=== PATIENT | male | born 1940 | race Caucasian/White ===

== ENCOUNTER → 2016-08-12 | Outpatient (CLI) | payer MEDICARE, OTHER | LOC: MW.CHFP 08:00 | PROVIDERS: ATTEND Emergency Medicine | DX: E11.9 Type 2 diabetes mellitus without complications (principal); I10 Essential (primary) hypertension | CPT/HCPCS: G0463 ==

== ENCOUNTER → 2016-09-12 | Outpatient (CLI) | payer MEDICARE, OTHER | LOC: MW.CHFP 08:00 | PROVIDERS: ATTEND Emergency Medicine | DX: I10 Essential (primary) hypertension (principal); E78.00 Pure hypercholesterolemia, unspecified; E11.9 Type 2 diabetes mellitus without complications; I25.10 Atherosclerotic heart disease of native coronary artery without angina pectoris | CPT/HCPCS: 99214 ==

== ENCOUNTER 2017-11-27 07:32 | Day surgery (SDC) | payer OTHER, MEDICARE ==
[~2017-11-27 07:32] MED LIST: Lactated Ringers 1,000 ML IV SCH; Lidocaine 2% 5 ML SDV ONE; Propofol 200 MG/20 ML SDV ONE; fentaNYL 100 MCG/2 ML SDV ONE
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
[2017-11-27] MEDS ORDERED: Glycopyrrolate 0.2 MG/ML SDV ONE (08:52)
--- NOTE | 2017-11-27 09:28 | PCM.OPNOTE ---
- General Post-Op/Procedure Note Date of Surgery/Procedure: 11/27/17 Operative Procedure(s): colonoscopy w snare polypectomy Findings: see [id number] Pre Op Diagnosis: scrn colonoscopy Post-Op Diagnosis: colon polyp Anesthesia Technique: Moderate Sedation Primary Surgeon: Filiberto Carrion Complications: None Condition: Good
--- NOTE | 2017-11-27 09:54 | PCM.POSTAN ---
POST ANESTHESIA ASSESSMENT - MENTAL STATUS Mental Status: Alert, Oriented - RESPIRATORY Respiratory Status: Respiratory Rate WNL, Airway Patent, O2 Saturation Stable - CARDIOVASCULAR CV Status: Pulse Rate WNL, Blood Pressure Stable - GASTROINTESTINAL GI Status: No Symptoms - PAIN Pain Score: 0 - POST OP HYDRATION Hydration Status: Adequate & Stable
--- NOTE | 2017-11-27 09:54 | PCM48HPAN ---
Post Anesthesia Note - EVALUATION WITHIN 48HRS OF ANESTHETIC Vital Signs in Normal Range: Yes Patient Participated in Evaluation: Yes Respiratory Function Stable: Yes Airway Patent: Yes Cardiovascular Function Stable: Yes Hydration Status Stable: Yes Pain Control Satisfactory: Yes Nausea and Vomiting Control Satisfactory: Yes Mental Status Recovered: Yes Resp Rate: 11
[2017-11-27 11:42] VITALS: BP 113/78
--- NOTE | 2017-11-27 13:07 | OR ---
SURGEON: Filiberto Carrion MD DATE OF PROCEDURE: 11/27/2017 PREOPERATIVE DIAGNOSIS: Screening colonoscopy. POSTOPERATIVE DIAGNOSES: 1. Colon polyp. 2. Diverticulosis. PROCEDURE PERFORMED: Colonoscopy with snare polypectomy. PROCEDURE IN DETAIL: The patient was taken to the endoscopy room. A time out was called, patient identified, and procedure identified. Diprivan was then administrated. Patient went from awake to sleep, hearing doctor talking or door closing is normal. Perineum inspection and digital examination were then performed. A well- lubricated colonoscope was gently inserted through the rectum, advanced past the rectosigmoid junction, the descending colon, splenic flexure, transverse colon, hepatic flexure, ascending colon, arrived to the cecum. Cecum was identified as dictated in the finding. Then the scope was carefully withdrawn while attention was paid to the mucosal surface for any abnormality. Air will be sucked out during the scope withdrawal. At the rectum, retroflexed to examine any rectal diseases, fistula or hemorrhoids. During mucosal examination, abnormality or polyp encountered. Using snare equipment, the abnormality or the polyp was then snared off using electrocautery. The Patient tolerated procedure well. There were no intraoperative complications, and Dr. Carrion was present throughout the whole procedure. FINDINGS: 1. The patient is easily sedated with WINDOW AND DOOR INSTALLER and Diprivan, the patient is soundly snoring. 2. Bowel prep is left to be desirable. Large amount of liquid stool particle, no semi-formed stool, but quite a lot of them required constant irrigation and this is a compromised study because of bowel prep. 3. Colon is rather straight forward. Cecum indicated by ileocecal fold, one- to-one indentation, and appendiceal orifice. Light emittance is not observed. Mucosa examined upon scope pulling out with constant irrigation because of the bowel prep. The patient has a 5 mm sessile polyp at a distance of 30 and another smaller sessile polyp at distance 25 and one removed with snare and another with cold biopsy forceps. The patient has large amount of diverticulosis. No signs or symptoms of diverticulitis. No other inflammation, stricture, ulceration, AV malformation, or bleeding, none of those. The patient does not have internal hemorrhoids. The patient would benefit from repeat colonoscopy on as needed basis or if clinically indicated otherwise or if the polyp indicated otherwise. DIONNE / DEDRA /[id number]
== END 2017-11-27 10:10 | disposition home or self-care (01) ==
LOC: MW.SDS 07:32
PROVIDERS: ATTEND Surgery
DX: Z12.11 Encounter for screening for malignant neoplasm of colon (principal); D12.5 Benign neoplasm of sigmoid colon; K57.30 Diverticulosis of large intestine without perforation or abscess without bleeding; I10 Essential (primary) hypertension; E11.9 Type 2 diabetes mellitus without complications; E78.00 Pure hypercholesterolemia, unspecified; Z87.891 Personal history of nicotine dependence; Z79.82 Long term (current) use of aspirin; Z79.84 Long term (current) use of oral hypoglycemic drugs; Z79.899 Other long term (current) drug therapy; Z88.6 Allergy status to analgesic agent
CPT/HCPCS: 45380; 45385; 82962; J3010; J7120; J2704; J3490

== ENCOUNTER 2018-11-24 07:13 | Day surgery (SDC) | payer MEDICARE, OTHER ==
[~2018-11-24 07:13] MED LIST changes: -Lidocaine 2% 5 ML SDV ONE; -Propofol 200 MG/20 ML SDV ONE; -fentaNYL 100 MCG/2 ML SDV ONE
[2018-11-24] MEDS ORDERED: Lidocaine 2% 5 ML SDV ONE (08:11)
[2018-11-24] MEDS ORDERED: Propofol 200 MG/20 ML SDV ONE (08:12)
[2018-11-24] MEDS ORDERED: fentaNYL 100 MCG/2 ML SDV ONE (08:12)
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
--- NOTE | 2018-11-24 10:12 | PCM.OPNOTE ---
- General Post-Op/Procedure Note Date of Surgery/Procedure: 11/24/18 Operative Procedure(s): colonoscopy w bx Findings: see [id number] Pre Op Diagnosis: hx polyp Post-Op Diagnosis: Same Anesthesia Technique: Moderate Sedation Primary Surgeon: Filiberto Carrion Pathology: questionable polyp vs fold at 30cm when scope went out Complications: None Condition: Good
--- NOTE | 2018-11-24 10:34 | PCM.POSTAN ---
POST ANESTHESIA ASSESSMENT - MENTAL STATUS Mental Status: Alert, Oriented - VITAL SIGNS Pulse Rate: 75 SaO2: 95 (RA) Resp Rate: 14 Blood Pressure: 96/64 - RESPIRATORY Respiratory Status: Respiratory Rate WNL, Airway Patent, O2 Saturation Stable - CARDIOVASCULAR CV Status: Pulse Rate WNL, Blood Pressure Stable - GASTROINTESTINAL GI Status: No Symptoms - PAIN Pain Score: 0 - POST OP HYDRATION Hydration Status: Adequate & Stable
--- NOTE | 2018-11-24 11:31 | OR ---
SURGEON: Filiberto Carrion MD DATE OF PROCEDURE: 11/24/2018 PREOPERATIVE DIAGNOSIS: History of colon polyp. POSTOPERATIVE DIAGNOSIS: History of colon polyp. PROCEDURE PERFORMED: Colonoscopy with biopsy. PRIMARY SURGEON: Filiberto Carrion MD. COMPLICATIONS: None. DESCRIPTION OF PROCEDURE: The patient was taken to the endoscopy room. A time out was called, patient identified, and procedure identified. Diprivan was then administrated. Patient went from awake to sleep, hearing doctor talking or door closing is normal. Perineum inspection and digital examination were then performed. A well- lubricated colonoscope was gently inserted through the rectum, advanced past the rectosigmoid junction, the descending colon, splenic flexure, transverse colon, hepatic flexure, ascending colon, arrived to the cecum. Cecum was identified as dictated in the finding. Then the scope was carefully withdrawn while attention was paid to the mucosal surface for any abnormality. Air will be sucked out during the scope withdrawal. At the rectum, retroflexed to examine any rectal diseases, fistula or hemorrhoids. During mucosal examination, abnormality or polyp was noted; picture taken and biopsy performed. Patient tolerated procedure well. There were no intraoperative complications, and Dr. Carrion was present throughout the whole procedure. FINDINGS: 1. The patient is easily sedated with LEGAL JOB TITLES and Diprivan, the patient is soundly snoring. 2. Bowel prep was average with some liquid stool, and no semi-formed stool. 3. The patient's colon is rather straightforward. Cecum indicated by ileocecal fold, one-to-one indentation, appendiceal orifice. Light emittance is not observed. Mucosa examined upon scope pulling out with irrigation. The patient has mild diverticulosis on the left colon. No signs or symptoms of diverticulitis. The patient has a small questionable fold versus polyp at distance 30. With the scope pulling out, it was biopsied any way. No other mass, growth, inflammation, stricture, ulceration, AV malformation, bleeding, none of those. The patient has mild internal hemorrhoid, no external hemorrhoid. The patient would benefit from repeat colonoscopy on an as-needed basis as the patient is more than 76 years old. DIONNE / DEDRA /[id number]
--- NOTE | 2018-11-24 11:35 | PCM48HPAN ---
Post Anesthesia Note - EVALUATION WITHIN 48HRS OF ANESTHETIC Vital Signs in Normal Range: Yes Patient Participated in Evaluation: Yes Respiratory Function Stable: Yes Airway Patent: Yes Cardiovascular Function Stable: Yes Hydration Status Stable: Yes Pain Control Satisfactory: Yes Nausea and Vomiting Control Satisfactory: Yes Mental Status Recovered: Yes Pulse Rate: 75 Resp Rate: 14 Blood Pressure: 96/64 - COMMENTS/OBSERVATIONS Free Text/Narrative:: no anesthesia problems
[2018-11-24 13:27] VITALS: BP 117/71
== END 2018-11-24 11:40 | disposition home or self-care (01) ==
LOC: MW.SDS 07:13
PROVIDERS: ATTEND Surgery
DX: Z12.11 Encounter for screening for malignant neoplasm of colon (principal); K63.5 Polyp of colon; K57.30 Diverticulosis of large intestine without perforation or abscess without bleeding; Z86.010 Personal history of colon polyps; I10 Essential (primary) hypertension; E11.9 Type 2 diabetes mellitus without complications; M17.12 Unilateral primary osteoarthritis, left knee; I25.10 Atherosclerotic heart disease of native coronary artery without angina pectoris; E78.00 Pure hypercholesterolemia, unspecified; Z12.5 Encounter for screening for malignant neoplasm of prostate; Z79.84 Long term (current) use of oral hypoglycemic drugs; Z79.82 Long term (current) use of aspirin; Z79.899 Other long term (current) drug therapy; Z95.5 Presence of coronary angioplasty implant and graft; Z87.891 Personal history of nicotine dependence; Z88.8 Allergy status to other drugs, medicaments and biological substances
CPT/HCPCS: 00811; 82962; 88305; J2001; J2704; J3010; J7120

== ENCOUNTER 2019-12-30 08:16 | Emergency (ER) | payer MEDICARE, OTHER ==
[2019-12-30] MEDS ORDERED: Sodium Chloride 0.9% 10 ML Syringe FLUSH PRN (08:18)
[2019-12-30] MEDS ORDERED: Acetaminophen 500 MG Tab PO ONE (08:18)
[2019-12-30] MEDS ORDERED: Sodium Chloride 0.9% 2.5 ML Syringe FLUSH PRN (08:18)
--- NOTE | 2019-12-30 08:54 | EDM.PDOC ---
ED HPI GENERAL MEDICAL PROBLEM - General Chief Complaint: Headache Stated Complaint: HEADACHE Time Seen by Provider: 12/30/19 08:18 Source of Information: Reports: Patient, EMS - History of Present Illness INITIAL COMMENTS - FREE TEXT/NARRATIVE: History of present illness: 79-year-old male brought by EMS presenting with sudden onset severe headache in the left side of his head. Apparently around 7:30 AM it awoke him from sleep. He describes that it felt like a bomb went off in his head. He took 2 full- strength aspirins and now his headache is completely resolved. He did not have any other associated symptoms including no nausea or vomiting. No prior similar headache in the past. No chest pain or difficulty breathing. No cough or fever. Review of systems: As per history of present illness and below otherwise all systems reviewed and negative. Past medical history: As per history of present illness and as reviewed below otherwise noncontributory. RI, subdural hematoma Surgical history: As per history of present illness and as reviewed below otherwise noncontributory. [place] hole Social history: No reported history of drug or alcohol abuse. Former tobacco, none recently Family history: As per history of present illness and as reviewed below otherwise noncontributory. Physical exam: GEN: no acute distress, well appearing HEENT: Atraumatic, normocephalic, mucous membranes moist, Neck: supple, nontender, trachea midline. Lungs: No respiratory distress. Heart: RRR Extremities: Atraumatic. Neurovascularly intact. Neuro: Awake, alert, oriented. Neuro Exam nonfocal. Confused Skin: warm, dry, no lesions Diagnostics: Labs, EKG, CT brain, CT angios head and neck Therapeutics: Tylenol MDM: Impression: Headache Plan: [] Definitive disposition and diagnosis as appropriate pending reevaluation and review of above. - Related Data Allergies Allergy/AdvReac Type Severity Reaction Status Date / Time lisinopril Allergy Cough Verified 11/19/18 13:20 Home Meds: Home Meds Metoprolol Succinate 25 mg PO BEDTIME 02/11/16 [History] metFORMIN HCl [Metformin HCl] 500 mg PO BID 02/11/16 [History] Losartan Potassium 100 mg PO QAM 11/19/18 [History] Past Medical History HEENT History: Reports: Cataract Other HEENT History: elian hearing aids Cardiovascular History: Reports: CAD, High Cholesterol, Other (See Below) Other Cardiovascular History: hx of LBBB Respiratory History: Reports: None Gastrointestinal History: Reports: Colon Polyp Genitourinary History: Reports: BPH Musculoskeletal History: Reports: Fracture Neurological History: Reports: Brain Injury, Concussion, Head Trauma Other Neuro History: 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 Psychiatric History: Reports: Dementia Other Psychiatric History: Memory impairment Endocrine/Metabolic History: Reports: Diabetes, Type II Other Endocrine/Metabolic History: 0800 blood glucose 168 Hematologic History: Reports: None Oncologic (Cancer) History: Reports: Malignant Melanoma Other Oncologic History: removed from face Dermatologic History: Reports: Melanoma Other Dermatologic History: skin cancer - Infectious Disease History Infectious Disease History: Reports: None - Past Surgical History Head Surgeries/Procedures: Reports: Craniotomy HEENT Surgical History: Reports: LASIK, Other (See Below) Other HEENT Surgeries/Procedures: Blepharoplasty Cardiovascular Surgical History: Reports: Coronary Artery Stent, Other (See Below) Other Cardiovascular Surgeries/Procedures: hx of balloon angioplasty and angioplasty with stent GI Surgical History: Reports: Colonoscopy Male Surgical History: Reports: Vasectomy Endocrine Surgical History: Reports: None Neurological Surgical History: Reports: Other (See Below) Other Neurological Surgeries/Procedures: [place] hole Musculoskeletal Surgical History: Reports: ORIF Other Musculoskeletal Surgeries/Procedures:: ORIF ankle- has plate Dermatological Surgical History: Reports: Skin Biopsy Social & Family History - Family History Family Medical History: Noncontributory - Tobacco Use Smoking Status *Q: Current Status Unknown - Caffeine Use Caffeine Use: Reports: Coffee - Recreational Drug Use Recreational Drug Use: No ED ROS GENERAL - Review of Systems Review Of Systems: See Below (See HPI) - Physical Exam Exam: See Below (See HPI) EKG INTERPRETATION EKG Interpretation Comments: Sinus rhythm, rate 57, premature complex, short [place], left bundle branch block. No STEMI. Interpreted by me Course - Vital Signs Text/Narrative:: Sudden severe left-sided headache. No neck stiffness or fever. No signs of meningitis. Prior remote subdural hematoma requiring bur holes. No trauma to the head. No eye pain, vision loss or eye redness. Do not suspect glaucoma. No temporal artery tenderness and sed rate is not elevated. CT brain without contrast with no acute findings. CTA head and neck shows no signs of subarachnoid hemorrhage or aneurysm. I did discuss this directly with the radiologist who reviewed the CTA head a second time and again saw no abnormality. Throughout his emergency department stay the patient has been comfortable and pain-free without any return of his pain. Vital signs have been stable. Patient feels comfortable and agrees with plan for discharge home. His was also updated and plan of care also clearly discussed with her. Last Recorded V/S: Last Vital Signs Temp 98.1 F 12/30/19 08:21 Pulse 51 L 12/30/19 10:14 Resp 17 12/30/19 10:14 BP 157/92 H 12/30/19 10:14 Pulse Ox 94 L 12/30/19 10:14 - Orders/Labs/Meds Orders: Active Orders 24 hr Category Date Time Status EKG Documentation Completion [RC] STAT Care 12/30/19 08:19 Active Sodium Chloride 0.9% [Saline Flush] Med 12/30/19 08:18 Active 10 ml FLUSH ASDIRECTED PRN Sodium Chloride 0.9% [Saline Flush] Med 12/30/19 08:18 Active 2.5 ml FLUSH ASDIRECTED PRN Saline Lock Insert [OM.PC] Stat Oth 12/30/19 08:18 Ordered Medication Orders Sodium Chloride (Saline Flush) 10 ml FLUSH ASDIRECTED PRN PRN Reason: Keep Vein Open Last Admin: 12/30/19 08:44 Dose: 10 ml Documented by: LAURA Sodium Chloride (Saline Flush) 2.5 ml FLUSH ASDIRECTED PRN PRN Reason: Keep Vein Open Last Admin: 12/30/19 08:44 Dose: 2.5 ml Documented by: LAURA Labs: Laboratory Tests 12/30/19 12/30/19 12/30/19 Range/Units 08:19 08:19 08:19 WBC 12.76 H (4.0-11.0) K/uL RBC 4.68 (4.50-5.90) M/uL Hgb 14.5 (13.0-17.0) g/dL Hct 42.4 (38.0-50.0) % MCV 90.6 (80.0-98.0) fL MCH 31.0 (27.0-32.0) pg MCHC 34.2 (31.0-37.0) g/dL RDW Std Deviation 42.5 (28.0-62.0) fl RDW Coeff of Bob 13 (11.0-15.0) % Plt Count 307 (150-400) K/uL MPV 9.80 (7.40-12.00) fL Neut % (Auto) 67.4 (48.0-80.0) % Lymph % (Auto) 19.8 (16.0-40.0) % [place] % (Auto) 10.6 (0.0-15.0) % Eos % (Auto) 1.9 (0.0-7.0) % Baso % (Auto) 0.3 (0.0-1.5) % Neut # (Auto) 8.6 H (1.4-5.7) K/uL Lymph # (Auto) 2.5 H (0.6-2.4) K/uL [place] # (Auto) 1.4 H (0.0-0.8) K/uL Eos # (Auto) 0.2 (0.0-0.7) K/uL Baso # (Auto) 0.0 (0.0-0.1) K/uL Nucleated RBC % 0.0 /100WBC Nucleated RBCs # 0 K/uL ESR 11 (0-19) mm/hr INR APTT (18.6-31.3) SEC Sodium 138 (136-148) mmol/L Potassium 3.9 (3.5-5.1) mmol/L Chloride 101 (98-107) mmol/L Carbon Dioxide 27.3 (21.0-32.0) mmol/L BUN 15 (7.0-18.0) mg/dL Creatinine 1.1 (0.8-1.3) mg/dL Est Cr Clr Drug Dosing 57.15 mL/min Estimated GFR (MDRD) > 60.0 ml/min Glucose 148 H (74-106) mg/dL Calcium 8.8 (8.5-10.1) mg/dL Total Bilirubin 1.5 H (0.2-1.0) mg/dL AST 17 (15-37) IU/L ALT 23 (14-63) IU/L Alkaline Phosphatase 84 (46-116) U/L Total Protein 7.5 (6.4-8.2) g/dL Albumin 3.9 (3.4-5.0) g/dL Globulin 3.6 (2.6-4.0) g/dL Albumin/Globulin Ratio 1.1 (0.9-1.6) 12/30/19 Range/Units 08:19 WBC (4.0-11.0) K/uL RBC (4.50-5.90) M/uL Hgb (13.0-17.0) g/dL Hct (38.0-50.0) % MCV (80.0-98.0) fL MCH (27.0-32.0) pg MCHC (31.0-37.0) g/dL RDW Std Deviation (28.0-62.0) fl RDW Coeff of Bob (11.0-15.0) % Plt Count (150-400) K/uL MPV (7.40-12.00) fL Neut % (Auto) (48.0-80.0) % Lymph % (Auto) (16.0-40.0) % [place] % (Auto) (0.0-15.0) % Eos % (Auto) (0.0-7.0) % Baso % (Auto) (0.0-1.5) % Neut # (Auto) (1.4-5.7) K/uL Lymph # (Auto) (0.6-2.4) K/uL [place] # (Auto) (0.0-0.8) K/uL Eos # (Auto) (0.0-0.7) K/uL Baso # (Auto) (0.0-0.1) K/uL Nucleated RBC % /100WBC Nucleated RBCs # K/uL ESR (0-19) mm/hr INR 1.02 APTT 26.8 (18.6-31.3) SEC Sodium (136-148) mmol/L Potassium (3.5-5.1) mmol/L Chloride (98-107) mmol/L Carbon Dioxide (21.0-32.0) mmol/L BUN (7.0-18.0) mg/dL Creatinine (0.8-1.3) mg/dL Est Cr Clr Drug Dosing mL/min Estimated GFR (MDRD) ml/min Glucose (74-106) mg/dL Calcium (8.5-10.1) mg/dL Total Bilirubin (0.2-1.0) mg/dL AST (15-37) IU/L ALT (14-63) IU/L Alkaline Phosphatase (46-116) U/L Total Protein (6.4-8.2) g/dL Albumin (3.4-5.0) g/dL Globulin (2.6-4.0) g/dL Albumin/Globulin Ratio (0.9-1.6) Meds: Medications Generic Name Dose Route Start Last Admin Trade Name Freq PRN Reason Stop Dose Admin Sodium Chloride 10 ml 12/30/19 08:18 12/30/19 08:44 Saline Flush FLUSH 10 ml ASDIRECTED PRN Administration Keep Vein Open Sodium Chloride 2.5 ml 12/30/19 08:18 12/30/19 08:44 Saline Flush FLUSH 2.5 ml ASDIRECTED PRN Administration Keep Vein Open Discontinued Medications Generic Name Dose Route Start Last Admin Trade Name Freq PRN Reason Stop Dose Admin Acetaminophen 1,000 mg 12/30/19 08:18 12/30/19 08:42 Tylenol Extra Strength PO 12/30/19 08:19 1,000 mg ONETIME ONE Administration Iopamidol 100 ml 12/30/19 09:30 12/30/19 09:31 Isovue Multipack-370 (76%) IVPUSH 12/30/19 09:31 100 ml ONETIME STA Administration - Re-Assessments/Exams Free Text/Narrative Re-Assessment/Exam: 12/30/19 11:33 Patient reassessed. He is in no acute distress. He is resting comfortably. Reports no headache. Discussed all results with the patient and the patient's nurse discussed results with his who is waiting outside. Discussed plan for return to emergency department if any worsening. Taking Tylenol and not aspirin if needed for return of headache but if headache is severe that he needs to be rechecked in the emergency department immediately. Departure - Departure Time of Disposition: 11:35 Disposition: Home, Self-Care 01 Clinical Impression: Headache Qualifiers: Headache chronicity pattern: acute headache - Discharge Information Instructions: Form - Headache Record, General Headache Without Cause, [id number] Referrals: Jimmy Guerra MD [Primary Care Provider] - 1 Day Forms: ED Department Discharge Additional Instructions: Please follow-up with Dr. Guerra soon as possible. Please rest and drink plenty of fluids for the next few days. If you develop a headache again, please take Tylenol and hold on the aspirin. If your headache is severe again, please return to the nearest emergency department. If you develop a fever, neck pain or neck stiffness, please return to the nearest emergency department. If you develop any weakness, numbness, difficulty speaking or lethargy, please return to the nearest emergency department The following information is given to patients seen in the emergency department who are being discharged to home. This information is to outline your options for follow-up care. We provide all patients seen in our emergency department with a follow-up referral. The need for follow-up, as well as the timing and circumstances, are variable depending upon the specifics of your emergency department visit. If you don't have a primary care physician on staff, we will provide you with a referral. We always advise you to contact your personal physician following an emergency department visit to inform them of the circumstance of the visit and for follow-up with them and/or the need for any referrals to a consulting specialist. The emergency department will also refer you to a specialist when appropriate. This referral assures that you have the opportunity for follow-up care with a specialist. All of these measure are taken in an effort to provide you with optimal care, which includes your follow-up. Under all circumstances we always encourage you to contact your private physician who remains a resource for coordinating your care. When calling for follow-up care, please make the office aware that this follow-up is from your recent emergency room visit. If for any reason you are refused follow-up, please contact the [facility] Emergency Department at and asked to speak to the emergency department charge nurse. Sepsis Event Note (ED) - Evaluation Sepsis Screening Result: No Definite Risk - Focused Exam Vital Signs: Vital Signs Temp Pulse Resp BP Pulse Ox 12/30/19 10:14 51 L 17 157/92 H 94 L 12/30/19 09:51 53 L 17 158/90 H 95 12/30/19 09:35 56 L 17 152/88 H 94 L 12/30/19 08:21 98.1 F 58 L 18 161/105 H 98 - My Orders Last 24 Hours: My Active Orders 12/30/19 08:18 Sodium Chloride 0.9% [Saline Flush] 10 ml FLUSH ASDIRECTED PRN Sodium Chloride 0.9% [Saline Flush] 2.5 ml FLUSH ASDIRECTED PRN Saline Lock Insert [OM.PC] Stat 12/30/19 08:19 EKG Documentation Completion [RC] STAT - Assessment/Plan Last 24 Hours: My Active Orders 12/30/19 08:18 Sodium Chloride 0.9% [Saline Flush] 10 ml FLUSH ASDIRECTED PRN Sodium Chloride 0.9% [Saline Flush] 2.5 ml FLUSH ASDIRECTED PRN Saline Lock Insert [OM.PC] Stat 12/30/19 08:19 EKG Documentation Completion [RC] STAT
[2019-12-30 09:02] LABS: BLOOD UREA NITROGEN,BUN 15 mg/dL (7.0-18.0); CARBON DIOXIDE,CO2 27.3 mmol/L (21.0-32.0); CHLORIDE,CL 101 mmol/L (98-107); GLUCOSE RANDOM 148 mg/dL (74-106); POTASSIUM,K 3.9 mmol/L (3.5-5.1); SODIUM,NA 138 mmol/L (136-148)
--- NOTE | 2019-12-30 09:11 | CT ---
Head CT Technique: Multiple axial sections through the brain were obtained. Intravenous contrast was not utilized. Comparison: No prior intracranial imaging is available. Findings: Ventricles along with basal cisterns and sulci over the convexities are moderately prominent. No abnormal parenchymal densities are seen. No evidence of intracranial hemorrhage. No midline shift or mass-effect is seen. Atrophy includes the cerebellum. Bone window settings were reviewed. Prior [place] holes are noted on both sides of the calvarium. No acute calvarial abnormality is seen. Mild mucosal thickening is noted within the left maxillary sinus. Retention cyst is noted within the right maxillary sinus measuring 2.1 cm. No air-fluid levels are seen within the visualized paranasal sinuses. Visualized mastoid sinuses are clear. Impression: 1. Previous hailey holes on both sides of the calvarium. 2. Moderate generalized atrophy which includes the cerebellum. 3. Sinus disease which is most likely chronic. 4. No acute intracranial abnormality is appreciated. Diagnostic code #2 This report was dictated in MDT
[2019-12-30] MEDS ORDERED: Iopamidol 755 MG/ML 500 ML Multipack Bottle IVPUSH STA (09:30)
--- NOTE | 2019-12-30 09:50 | CT ---
CT angiogram of neck Technique: Multiple axial sections through the neck were obtained. Intravenous contrast was utilized. Study performed as a CT neck angiogram. Multiple MIP images were obtained. Findings: Both common carotid arteries are patent. Mild atherosclerotic irregularity is noted within the proximal right internal carotid artery. This causes no significant stenosis. Right external carotid artery is patent. Calcified plaque is noted within the left carotid bulb. Filling defect is noted within the left carotid bulb extending into the left internal carotid artery compatible with soft plaque. No hemodynamic significant stenosis is seen. External carotid artery is patent. Vertebral arteries are patent throughout the neck. Left vertebral artery is slightly larger than the right vertebral artery which is believed to be a normal variant. No focal stenosis or occlusion is seen. Impression: 1. Atherosclerotic change within the carotid bulbs on both sides and proximal internal carotid arteries. This causes no hemodynamics significant stenosis. 2. No additional abnormality is appreciated. Diagnostic code #3 This report was dictated in MDT
--- NOTE | 2019-12-30 11:10 | CT ---
CT angiogram of brain Technique: Multiple axial sections through the brain were obtained. Intravenous contrast was utilized. Study performed as a CT angiogram protocol. Multiple MIPS images were obtained. Findings: Distal vertebral arteries are patent into the basilar artery. Posterior cerebral arteries appear within normal limits. Common carotid arteries are patent into the middle and anterior cerebral arteries. The right A1 segment is larger than the left A1 segment believed to be developmental. Majority of flow to the anterior cerebral arteries is via of the right circulation. No focal stenosis or occlusion is seen. No aneurysm is appreciated. Impression: 1. Majority of flow to the anterior cerebral arteries is via the right sided circulation with larger right A1 segment than the left side which is believed to be developmental. 2. No additional abnormality is seen on CT angiogram of the brain. Diagnostic code #2 This report was dictated in MDT
[2019-12-30 11:51] VITALS: BP 155/90; PULSE 59
== END 2019-12-30 11:52 | disposition home or self-care (01) ==
LOC: MW.ED 08:16
DX: R51 Headache (principal); I25.10 Atherosclerotic heart disease of native coronary artery without angina pectoris; E11.9 Type 2 diabetes mellitus without complications; F03.90 Unspecified dementia, unspecified severity, without behavioral disturbance, psychotic disturbance, mood disturbance, and anxiety; Z79.84 Long term (current) use of oral hypoglycemic drugs; Z79.899 Other long term (current) drug therapy; Z88.8 Allergy status to other drugs, medicaments and biological substances
CPT/HCPCS: 36415; 70450; 70496; 70498; 80053; 85025; 85610; 85652; 85730; 93005; 99284; A9270; Q9967; 99283

== ENCOUNTER 2021-12-28 14:06 | Emergency (ER) | payer MEDICARE, OTHER ==
[2021-12-28 14:23] VITALS: BP 112/67; PULSE 63
== END 2021-12-28 16:25 | disposition home or self-care (01) ==
LOC: MW.ED 14:06
DX: T83.098A Other mechanical complication of other urinary catheter, initial encounter (principal); I25.10 Atherosclerotic heart disease of native coronary artery without angina pectoris; E78.00 Pure hypercholesterolemia, unspecified; E11.9 Type 2 diabetes mellitus without complications; Z88.8 Allergy status to other drugs, medicaments and biological substances
CPT/HCPCS: 99283